=== PATIENT | male | born 1935 | race Caucasian/White ===

== ENCOUNTER 2016-10-13 14:53 | Emergency (ER) | payer OTHER, MEDICARE ==
[2016-10-13 15:17] VITALS: RESP 16
--- NOTE | 2016-10-13 15:27 | EDPHY ---
H & P Time Seen by Provider: 10/13/16 15:27 HPI/ROS: CHIEF COMPLAINT: Right-sided back and leg pain HISTORY OF PRESENT ILLNESS: This 81-year-old man started having pain on morning on the right side of his back radiated to his buttock. Stephens like a muscle spasm in at that time radiated to his right leg and thigh down his knee into the top of the arch of his right foot. Those symptoms have disappeared and he still has some pain in his right back radiating to his right buttock but has not gone away completely. Not associated with weakness or numbness in the leg or foot or incontinence. No skin changes and no chest pain or shortness of breath. No recent immobilization or travel. REVIEW OF SYSTEMS: Eye: no change in vision ENT: no sore throat Cardiac: no chest pain or syncope Pulmonary: no cough or SOB Abdomen: no vomiting, diarrhea, abdominal pain Musculoskeletal: HPI Skin: no rash Neuro: no headache Constitutional: no fever : no urinary symptoms A comprehensive 10 point review of systems is otherwise negative aside from elements mentioned in the history of present illness. PAST MEDICAL HISTORY: Cataract surgery and tonsillectomy Social history: Worked at [employer], retired General Appearance: Alert and conversant, cooperative. Eyes: No scleral icterus. ENT, Mouth: Normal mucous membranes. Respiratory: Normal respiratory effort, breath sounds equal, lungs are clear to auscultation. Cardiovascular: Regular rate and rhythm. Gastrointestinal: Abdomen is soft and non tender. No pulsatile mass Neurological: Alert and oriented x3. Normally conversant. Face symmetric, normal movement and sensation in all extremities. Negative straight leg raising bilaterally with 2+ patellar reflexes and toes downgoing. Skin: Warm and dry, no rashes. Musculoskeletal: No midline lumbar spine tenderness. Tenderness over the right -sided sciatic notch in the pelvis. Psychiatric: Not agitated. Emergency Department course/MDM: The patient tells me contact his primary care office and has an appointment tomorrow at 11:00 a.m. but they told him to come to the ER to get an ultrasound to rule out DVT. My clinical suspicion is very low for DVT, I think this is classic for sciatica. I do not think ultrasound is necessarily indicated in the emergency department and the patient states understanding and agreement with that judgment. It has kept him up at night a couple of times but he has not really taken any pain medication. Lumbar spine films are ordered, he will use [id number] acetaminophen or ibuprofen for the next 2-3 days if needed so he can sleep at night. He will follow up with his primary care doctor tomorrow. He does not have clinical presentation to suggest that he has likely DVT or PE or cauda equina or neurosurgical emergency. Smoking Status: Never smoked Constitutional: Initial Vital Signs Temperature (C) 36.4 C 10/13/16 15:13 Heart Rate 71 10/13/16 15:13 Respiratory Rate 16 10/13/16 15:13 Blood Pressure 158/82 H 10/13/16 15:13 O2 Sat (%) 95 10/13/16 15:13 O2 Delivery Mode Room Air Allergies/Adverse Reactions: No Known Allergies Allergy (Verified 10/13/16 15:13) Home Medications: Medication Instructions Recorded NK [No Known Home Meds] 10/13/16 Medical Decision Making - Diagnostics Imaging: Lumbar spine x-rays reviewed by myself show no fracture or other acute traumatic abnormality. Narrow disc space. Departure - Departure Disposition: Home, Routine, Self-Care Clinical Impression: Low back pain Condition: Good Instructions: Sciatica (ED) Referrals: Coleen Chaudhari MD [Primary Care Provider] - 1 day without fail (as scheduled tomorro 1100am)
--- NOTE | 2016-10-13 16:24 | DX ---
Lumbar Spine, Two Views Indication: Low back pain. Findings: Vertebral body heights are well maintained. There is mild anterior osteophytosis of the l ower lumbar spine and mild osteoarthritic changes of the facet joints. There is mild to moderate dis k space narrowing at the L5-S1 interspace. There is mild joint space narrowing at the hip joints and mild osteoarthritic changes of the SI joint s. 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
[2016-10-13 16:42] VITALS: BP 144/76; PULSE 75; TEMP 97.7; O2SAT 98
== END 2016-10-13 16:41 | disposition home or self-care (01) ==
DX: M54.5 Low back pain (principal)

== ENCOUNTER → 2016-10-14 | Outpatient (CLI) | payer OTHER, MEDICARE ==
--- NOTE | 2016-10-14 18:07 | DX ---
Right hip, 2 views. October 14, 2016. 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 Hip joint space is relatively preserved, however. No fracture. Impression: 1. Early degenerative changes, right hip joint.
== END ==
LOC: GIMAGING 14:17
PROVIDERS: ATTEND Internal Medicine
DX: M16.11 Unilateral primary osteoarthritis, right hip (principal)
CPT/HCPCS: 73502-PO

== ENCOUNTER 2019-03-14 11:53 | Emergency (ER) | payer OTHER, MEDICARE | END 2019-03-14 14:26 | disposition home or self-care (01) ==